=== PATIENT | male | born 1955 | race Caucasian/White ===

== ENCOUNTER → 2023-08-10 11:47 | Outpatient (REF) | payer MEDICARE, OTHER, SELFPAY | LOC: RAD 11:47 | PROVIDERS: ATTENDING PHYSICIAN Physician Assistant Medical | DX: M53.3 Sacrococcygeal disorders, not elsewhere classified (principal) | CPT/HCPCS: 72220 ==

== ENCOUNTER → 2023-08-31 06:31 | Outpatient (REF) | payer MEDICARE, OTHER, SELFPAY | LOC: MRI 3T 06:31 | PROVIDERS: ATTENDING PHYSICIAN Specialist; FAMILY PHYSICIAN Family Medicine | DX: M25.561 Pain in right knee (principal); M25.562 Pain in left knee | CPT/HCPCS: 73721 ==

== ENCOUNTER 2023-11-12 18:19 | Emergency (ER) | payer MEDICARE, OTHER, SELFPAY ==
[2023-11-12 18:28] VITALS: BP 143/81
--- NOTE | 2023-11-12 22:28 | ED.GENMED ---
History of Present Illness
General
Chief Complaint: DVT/Possible Blood Clot
Source: patient
Exam Limitations: none
Time Seen by Provider: 11/12/23 18:42
Nursing documentation reviewed up to this point in time: agreed with
History of Present Illness
History of Present Illness:
Patient to ED with complaint of right lower leg swelling. Noticed symptoms this AM. No history of trauma. No prior history of same. Brought self to ED for eval.
Past History
Past History
ED Past Medical History: None
Social History
Tobacco: Non-smoker
Personal:
Review of Systems
Review of Systems
Allergies reviewed?: Yes
Constitutional: Reports no symptoms
EENT: Reports no symptoms
Respiratory: Reports no symptoms
Cardiac: Reports no symptoms
ABD/GI: Reports no symptoms
Musculoskeletal: Reports joint pain (Right calf pain)
Skin: Reports no symptoms
Neurological: Reports no symptoms
Psychiatric: Reports no symptoms
Phy Exam
General Physical Exam
General Presentation: well appearing and no apparent distress
General age: appears stated age
General Skin: warm and dry
General Habitus: normal
General Mental: alert
Musculoskeletal Exam
Musculoskeletal Exam: full ROM, neuro vasc intact and other (mild swelling to right lower leg.)
Skin Exam
Skin Exam: normal color, warm/dry and no rash
Psychiatric Exam
Psychiatric Exam: normal mood/affect
Course
Orders/Labs/Results
Orders:
Orders
11/12/23 18:32
US Legs, Right [US Periph Venous LOWER Ext RT] Urgent
Comment:
Reason For Exam: pain and swelling.
Vital Signs
Initial and Last Documented VS:
Initial Vital Signs
Temp Pulse Resp BP Pulse Ox
98.6 F 65 18 143/81 99
11/12/23 18:28 11/12/23 18:28 11/12/23 18:28 11/12/23 18:28 11/12/23 18:28
Last Documented Vital Signs
Temp Pulse Resp BP Pulse Ox
98.6 F 65 18 143/81 99
11/12/23 18:28 11/12/23 18:28 11/12/23 18:28 11/12/23 18:28 11/12/23 18:28
*Radiology
Radiology exam reviewed: radiology read reviewed
*Pulse Oximetry
Patient hypoxic: no
*Critical Care Note
Total Time (30-74mins, 75-104mins- exclusive of procedures): Not Applicable
ED Attending Note
-
Portions of this chart may have been created with voice recognition software.� Occasional wrong word or��sound alike� substitutions may have occurred due to the inherent limitations of voice recognition software.
Discharge Plan
Departure
Patient Disposition: Home (Routine Discharge)
Date of Disposition: 11/12/23
Time of Disposition: 20:05
Patient with high blood pressure during this ER visit?: No
Condition: Good
Covid-19: Not Applicable
Discharge Problem:
Leg swelling
Instructions: Swelling, Ayala's Cyst (DC)
Prescriptions:
No Action
oxycodone-acetaminophen [Percocet] 1 EACH tablet
1 - 2 ea PO Q6HPRN PRN (Reason: pain) Qty: 20 0RF
Referrals:
Carline Vicente MD [Family Provider] - Follow up in 2-3 days
Interventions
Interventions:
*Risk Screen - Suicide Last Done: 11/12/23 18:28
*General Assessment Last Done: 11/12/23 18:28
*Neglect/Abuse Screening Last Done: 11/12/23 18:28
*ED COVID-19 Vaccine History Last Done: 11/12/23 18:28
*Nursing Disposition Last Done: 11/12/23 20:17
ED- Cardiac Assessment Last Done: 11/12/23 18:42
ED- Pulmonary Assessment Last Done: 11/12/23 18:42
ED-Peripheral Vascular Assessment Last Done: 11/12/23 18:42
ED-Skin Assessment Last Done: 11/12/23 18:40
Discharge Date and Time
Discharge Date/Time: 11/12/23 20:18
Print Language: DANISH
== END 2023-11-12 20:18 | disposition home or self-care (01) ==
LOC: EMR 18:19
PROVIDERS: EMERGENCY PHYSICIAN Emergency Medicine; FAMILY PHYSICIAN Family Medicine
DX: R22.41 Localized swelling, mass and lump, right lower limb (principal)
CPT/HCPCS: 99284; 93971

== ENCOUNTER → 2024-04-03 14:32 | Outpatient (REF) | payer MEDICARE, OTHER, SELFPAY | LOC: RAD 14:32 | PROVIDERS: ATTENDING PHYSICIAN Family Medicine | DX: R05.3 Chronic cough (principal) | CPT/HCPCS: 71046 ==

== ENCOUNTER → 2024-04-10 07:42 | Outpatient (REF) | payer MEDICARE, OTHER, SELFPAY | LOC: RSP 07:42 | PROVIDERS: ATTENDING PHYSICIAN Family Medicine | DX: R05.3 Chronic cough (principal) | CPT/HCPCS: 94727; 94729; 88738; 94010 ==

== ENCOUNTER 2024-07-22 06:28 | Outpatient (RCR) | payer MEDICARE, OTHER, SELFPAY | END 2024-07-22 23:59 | disposition home or self-care (01) | LOC: ROT 06:28 | PROVIDERS: ATTENDING PHYSICIAN Orthopaedic Surgery; FAMILY PHYSICIAN Family Medicine | DX: M65.341 Trigger finger, right ring finger (principal); Z73.6 Limitation of activities due to disability | CPT/HCPCS: 97140; 97166; 97535 ==

== ENCOUNTER → 2024-07-29 06:58 | Day surgery (SDC) | payer MEDICARE, OTHER, SELFPAY | LOC: CATH 06:58 | PROVIDERS: ATTENDING PHYSICIAN Nuclear Medicine Nuclear Cardiology; FAMILY PHYSICIAN Family Medicine; OTHER PHYSICIAN Student in an Organized Health Care Education/Training Program | DX: I48.0 Paroxysmal atrial fibrillation (principal); Z53.09 Procedure and treatment not carried out because of other contraindication; Z79.02 Long term (current) use of antithrombotics/antiplatelets; R93.1 Abnormal findings on diagnostic imaging of heart and coronary circulation | CPT/HCPCS: 93005 ==

== ENCOUNTER 2024-08-07 12:55 | Outpatient (RCR) | payer MEDICARE, OTHER, SELFPAY | END 2024-08-07 23:59 | disposition home or self-care (01) | LOC: ROT 12:55 | PROVIDERS: ATTENDING PHYSICIAN Orthopaedic Surgery; FAMILY PHYSICIAN Family Medicine | DX: Z47.89 Encounter for other orthopedic aftercare (principal); M65.341 Trigger finger, right ring finger (principal); Z73.6 Limitation of activities due to disability | CPT/HCPCS: 97010; 97018; 97022; 97110; 97140 ==

== ENCOUNTER → 2024-08-12 08:43 | Outpatient (REF) | payer MEDICARE, OTHER, SELFPAY ==
[2024-08-12 09:13] LABS: % Basophils 0.9 % (0-2); % Immature Granulocytes 0.7 % (0-0.5); % Lymphocytes 30.2 % (20.5-51.1); % Monocytes 8.4 % (1.7-9.3); % Neutrophils 56.8 % (42.2-75.2); Absolute Eosinophils 0.1 10^3/uL (0-0.7); Absolute Lymphocytes 1.3 10^3/uL (1.2-3.4); Absolute Monocytes 0.4 10^3/uL (0.1-0.6); Absolute Neutrophils 2.5 10^3/uL (1.4-6.5); Hematocrit 43.6 % (39.0-52.0); Hemoglobin 15.1 g/dL (13.0-18.0); Mean Corp Hgb Conc. 34.6 g/dL (33.0-37.0); Mean Corpuscular Volume 89.5 fL (80.0-94.0); Mean Platelet Volume 9.6 fL (7.4-10.4); Nucleated Red Blood Cells % 0 % (-); Platelet Count 163 10^3/uL (130-400); Red Blood Cell Count 4.87 10^6/uL (4.70-6.10); Red Cell Dist. Width 13.3 % (11.5-14.5); White Blood Cell Count 4.4 10^3/uL (4.8-10.8)
[2024-08-12 10:13] LABS: ALT (SGPT) 26 U/L (0-50); AST (SGOT) 25 U/L (17-59); Albumin 4.4 g/dl (3.5-5.0); Alkaline Phosphatase 68 U/L (38-126); Blood Urea Nitrogen 19 mg/dl (9-20); Carbon Dioxide 28 mmol/L (22-30); Chloride 111 mmol/L (98-107); Glucose 91 mg/dl (70-99); Potassium 4.5 mmol/L (3.5-5.1); Sodium 144 mmol/L (135-145); Total Protein 7.3 g/dl (6.3-8.2); eGFR > 60.00
== END ==
LOC: SDSPAT 08:43
PROVIDERS: ATTENDING PHYSICIAN Internal Medicine Cardiovascular Disease; FAMILY PHYSICIAN Family Medicine; OTHER PHYSICIAN Student in an Organized Health Care Education/Training Program
DX: I48.0 Paroxysmal atrial fibrillation (principal)
CPT/HCPCS: 36415; 80053; 85025; 86850; 86900; 86901

== ENCOUNTER 2024-08-22 12:07 | Day surgery (SDC) | payer MEDICARE, OTHER, SELFPAY ==
[2024-08-12 08:57] VITALS: BMI 24.8
[2024-08-22] VITALS (12 sets, daily range): BP systolic 102–146; BP diastolic 55–92
[2024-08-22 14:52] LABS: ACT-LR - POC 360 Seconds (116-155)
[2024-08-22 15:20] LABS: ACT-LR - POC 382 Seconds (116-155)
[2024-08-22 15:48] LABS: ACT-LR - POC 377 Seconds (116-155)
--- NOTE | 2024-08-22 16:26 | ITS.CL.ABL ---
Special Education Teacher - Ablation
Ablation
Procedure Report:
AFIB ablation:
Mr. Catherine is a very pleasant 68 yr old gentleman with medical history significant for symptomatic paroxysmal atrial fibrillation is here in the EP lab for atrial fibrillation ablation
Date of Procedure:
08/22/2024
Indications:
Symptomatic paroxysmal atrial fibrillation
Pre-Operative Diagnosis:
Paroxysmal atrial fibrillation
Post-Operative Diagnosis:
Paroxysmal atrial fibrillation
Procedure Performed:
Atrial fibrillation ablation with wide area circumferential ablation (WACA) approach for pulmonary vein isolation
Performing Physician:
Marbella Steele MD
Assistants:
EP staff
Anesthesia:
See anesthesia records
Detailed Description of the Procedure:
Written informed consent was obtained from the patient after a full explanation of the risks and benefits of the procedure including the risks of sedation and anesthesia.
The patient was brought to the electrophysiology laboratory in stable condition in fasting state. Continuous electrocardiographic and hemodynamic monitoring was initiated.
The initial rhythm was sinus rhythm.
The procedure site was meticulously prepared with surgical scrub and allowed to dry with no pooling. Sterile draping was applied to cover the procedure site. The image intensifier was draped with sterile bag and positioned over the patient. After
infusion of local anesthetic, vascular access was obtained under ultrasound guidance and sheaths were placed over guide wire as detailed below.
The images of the ultrasound of the femoral vessels were stored in patient chart.
Sheath and Catheter Placement:
In the right femoral vein, a 10-[place] sheath was placed under ultrasound guidance for use during the ablation procedure. In the right femoral vein, another 9-Fr sheath was placed for use during intracardiac echo procedure.
The sheaths were upgraded as needed during the case. Intracardiac catheters were positioned using direct fluoroscopic guidance.� ICE catheter was placed in RA. The following catheters / sheaths were placed
Sheaths:
��������� 17Fr steerable sheath (Faradrive�, Jianshu) upgraded from Agilis sheath in right femoral vein
��������� 9Fr in right femoral vein
Catheters:
��������� The Affera Sphere 9 catheter -bidirectional D/F� - at locations of HRA, LA and LV.
��������� Farawave� PFA catheter
��������� ICE catheter -AccuNav -� at locations of RA, SVC, and RV.
Heparin was initiated after the access was obtained.
Intracardiac ECHO:
An 8-Equatorial [place] AcuNav intracardiac ECHO (ICE) probe was advanced through the 9-Equ[place] sheath in the left femoral vein into the right atrium under fluoroscopic and ICE ultrasound image guidance and a baseline ECHO study was performed. The left atrial
size was mildly dilated. There was trace tricuspid regurgitation. The aortic valve was grossly normal. There was normal left ventricular size and function. There is a trace pericardial effusion. The MELVIN has baseline normal velocities. The pulmonary
had good flow identified.
During the procedure, ICE was used for monitoring of complications, guidance of trans-septal puncture, monitor the catheter position and tracking ablation lesions. No change in the pericardial space noted throughout the procedure.
Trans-septal Puncture:
Heparin was initiated and infused to maintain appropriate ACT. A J-tipped guidewire was advanced through into the superior vena cava under fluoroscopic and ICE guidance. The Agilis sheath with BRK needle was advanced into the superior vena cava over
the guidewire. The apparatus was withdrawn until it was in contact with the fossa ovalis. The position was adjusted based on fluoroscopy and ultrasound images from ICE. Under fluoroscopic, hemodynamic and ICE ultrasound guidance, left atrium was
cannulated by advancing the needle. Once atrial septum was cannulated, the needle was pulled back and the guide wire was advanced through the needle into the left atrium. The guide wire was advanced into the left superior pulmonary vein. Both the
sheath and the dilator was advanced into the left atrium. The dilator with the needle was withdrawn. Blood was aspirated from the Agilis sheath and arterial blood confirmed. The sheath was flushed. Saline injection noted into the left atrium on ICE.
The waveform of the LA pressure was recorded. The mapping catheter was advanced in the Agilis sheath into the left pulmonary vein.
3D Electroanatomic Mapping:
Glycopyrrolate 0.2 mg was given prior to the placement of ablation.
Using the Sphere 9 Affera catheter advanced through Agilis sheath into the left atrium, an electroanatomic map (EAM) of the left atrium was created using Dryada� mapping system with Prism-1 software. The map was used for localization of catheter
position and tacking of ablation lesions. The EAM of the left atrium showed a total of 4 PVs with a two left and two right sided pulmonary veins with all electrically connected to the body the LA. It showed no significant scar on the posterior wall
of the LA. The LA was dilated in size.
The Affera catheter had thermal sensing error on their system and ablation could not be performed. Decision was made to switch to Farapulse for ablation and use Affera for mapping. �
Following the EAM, preparation were made for ablation.
Ablation:
Ablation # 2: Pulmonary vein Isolation:
Glycopyrrolate 0.2 mg was given again with the first dose administered two hours apart prior to the placement of ablation.
Using Farawave pulsed wave ablation system, pulmonary vein isolation was achieved. First the ablation catheter was placed in the LSPV and ostial ablation lesions were performed in a counter clock burciaga approach all around the PV ostium
circumferentially using the Farapulse catheter in �[place]� formation. Then the catheter was placed on the antral location (in Disc/flower formation) and multiple ablation lesions were placed circumferentially on the antrum of the vein.
In the similar fashion, the LIPV were isolated.
Then the catheter was moved to right sided veins. The ostial and antral ablations were placed as noted above.
Confirmation of the PVI and bidirectional block:
Following achievement of entrance block at the pulmonary veins with no electrical activity present in the veins and good normal signal present in the posterior wall and left atrial appendage.
The LA was mapped with The Dryada� mapping system with Prism-1 software in sinus rhythm confirming the line of block at the ablation lesions lines.
�
EP study:
Sinus Node Function: The sinus node functions are within acceptable normal range.
Atrioventricular Alise Function: �Normal AV conduction noted with normal AV alise conduction time.
Procedure End
ICE study was done again that showed no epicardial accumulation. No complications noted.
Following the completion of the EP study, catheters were removed. Protamine 30 mg was given at the end of the procedure and ACT was checked repeatedly. The sheaths were removed and hemostasis achieved with Figure of 8 suture and manual compression
after acceptable ACT is achieved.
Left atrial Pressure:
Pre-Procedure: Mean LA pressure was 5mmHg
Post-Procedure: Mean LA pressure was 6mmHg
Estimated Blood loss:
<10 cc
Specimens Removed:
None.
Implants / Devices:
None
Urine output:
None
Packs / Drains/ Tubes:
None
Instrument / Sponge Count Correct:
Yes
Complications of the Procedure:
None
Condition of Patient at Time of Transfer:
Hemodynamically stable with no neurological or vascular compromise.
Summary:
��������� Successful atrial fibrillation ablation with circumferential bidirectional line of block at pulmonary vein antra (Pulmonary vein isolation)
Figures from the Procedure:
Figure 1: The electroanatomic mapping (EAM) of the left atrium with bipolar voltage (purple indicates normal electrical activity with red as no myocardial muscle electric activity indicating a line of block or scar.
--- NOTE | 2024-08-22 17:19 | PTCARENOTE ---
Pt with bladder discomfort and wished for intervention to relieve pressure. Straight cathed for 800 mls clear yellow and feeling great.
--- NOTE | 2024-08-22 19:02 | PTCARENOTE ---
pt is sr on the monitor, hr in the 60s, vss. pt offers no complaints at this time. right groin is CDI. pt educated on plan of care and verbalized understanding. call costello within reach.
--- NOTE | 2024-08-22 20:55 | PTCARENOTE ---
Pt rec'd at change of shift with spouse at bedside. Right femoral ablation site with DDI. Bedrest completed. Pt aware to call nursing when he wants to get up for the first time. Pt does not feel the urge to void at this time. He was straight cath at
1730 in EP lab. call costello within reach.
[2024-08-22] MEDS: PRADAXA 150 MG PO (22:12)
--- NOTE | 2024-08-22 22:38 | PTCARENOTE ---
Pt attempted to void in bathroom first time since getting straight cath in EP lab at 1730. pt states its was only a couple of drops. bladder scan performed post void with 459 cc noted. Pt with no discomfort at this time. Will rescan at 2330 (6 hrs
post last cath). Pt aware to call nursing if he gets uncomfortable.
--- NOTE | 2024-08-23 00:03 | PTCARENOTE ---
After 6 hrs of multiple trips to bathroom and only approx 20 ml out pt bladder scanned again resulting at 510 cc. Pt then straight cath for 600 ml of vinita urine.
[2024-08-23 05:35] VITALS: BP 121/73
[2024-08-23 05:51] LABS: Hemoglobin 13.8 g/dL (13.0-18.0); Mean Corp Hgb Conc. 35.4 g/dL (33.0-37.0); Mean Corpuscular Hgb 30.9 pg (27.0-31.0); Mean Corpuscular Volume 87.4 fL (80.0-94.0); Mean Platelet Volume 9.8 fL (7.4-10.4); Platelet Count 147 10^3/uL (130-400); Red Blood Cell Count 4.46 10^6/uL (4.70-6.10); Red Cell Dist. Width 13.4 % (11.5-14.5); White Blood Cell Count 7.2 10^3/uL (4.8-10.8)
--- NOTE | 2024-08-23 06:21 | PTCARENOTE ---
Pt reports being unable to void after several attempts throughout the night. bladder scan 668, straight cath for 700. Pt tolerated well.
[2024-08-23 06:27] LABS: Blood Urea Nitrogen 16 mg/dl (9-20); Calcium 9.5 mg/dl (8.4-10.2); Carbon Dioxide 22 mmol/L (22-30); Chloride 112 mmol/L (98-107); Estimated Creatinine Clearance 108 ml/min; Glucose 127 mg/dl (70-99); Potassium 4.4 mmol/L (3.5-5.1); Sodium 140 mmol/L (135-145); eGFR > 60.00
[2024-08-23 07:22] VITALS: BP 129/83
[2024-08-23] MEDS: PRADAXA 150 MG PO (08:23)
[2024-08-23] MEDS: CRESTOR 20 MG PO (08:24)
[2024-08-23] MEDS: PROTONIX 40 MG PO (08:24)
[2024-08-23] MEDS: TOPROL XL 25 MG PO (08:24)
[2024-08-23] MEDS: PROSCAR 5 MG PO (08:25)
[2024-08-23] MEDS: FLOMAX PO (08:49)
[2024-08-23] MEDS: FLOMAX 0.4 MG PO (09:00)
--- NOTE | 2024-08-23 09:00 | W.PN.UPDATE ---
Addendum entered and electronically signed by Rafael Maguire MD 08/23/24 10:51:
68 yo male with paroxysmal A fib on pradaxa, admitted following ablation 08/22. He has some urination retention, and has known h/o this. Seems to be improving. Exam with RRR, no murmurs, no edema. Tele shows SR/SB.
A fib. Continue pradaxa.
urinary retention. seems to be improving. he can self cath at home.
discharge planning
Original Note:
Update Note
Progress Note Update
Mr. Catherine is 68 yo male with paroxysmal Afib, BPH and HLD, who is s/p Afib ablation 08/22/24. He denies any palpitations, continued on Pradaxa. Groin sites are healed. He has BPH and occasional urinary retention, sometimes he will straight cath
himself at home (followed by Dr. Lyons). He was straight cathed last night for about 600ml and continues to feel his bladder is full but unable to urinate. Will give Flomax this am and monitor. If urinary retention improves then he will be
discharged home. Follow up as arranged.
--- NOTE | 2024-08-23 11:34 | W.DS.TRANS ---
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
-
Discharge Instructions:
Discharge Diagnosis/Procedures AFib, s/p ablation
Diet Low Cholesterol
Driving Restrictions No driving for 24 hours
Instructions:
Stand-Alone Forms: DC Instructions- Cath/EP Lab
Changes to Home Medications: No
Discharge Medications:
DC Medications w/original date entered in [employer]
alfuzosin 10 mg tablet,extended release 24 hr 10 mg PO DAILY 08/22/24
dabigatran etexilate 150 mg capsule (Pradaxa) 150 mg PO BID 08/22/24
finasteride 5 mg tablet 5 mg PO DAILY 08/22/24
ipratropium bromide 0.02 % solution for inhalation 2.5 ml inhalation BID PRN drainage 08/22/24
metoprolol succinate 25 mg tablet,extended release 24 hr 25 mg PO DAILY 08/22/24
omeprazole 20 mg capsule,delayed release 20 mg PO DAILY 08/22/24
rosuvastatin 20 mg tablet 20 mg PO DAILY 08/22/24
tadalafil 5 mg tablet 5 mg PO DAILY 08/22/24
Home Medication Changes
Pending Results: No
[2024-08-23 11:59] VITALS: BP 122/71
[2024-08-23 12:01] VITALS: BP 122/71
--- NOTE | 2024-08-23 15:55 | PTCARENOTE ---
Pt seen by . Pt still not fully emptying his bladder, voided urine amounts @100mls with post void bladder scan of @220mls. Pt states his urine is flowing slightly easier. Pt has straight catheters already at home, procedure reviewed with him
as well as written instructions which he understands. Telemetry and IV device removed. Discharge instructions reviewed with pt and his spouse regarding activity and driving restrictions, wound care, medications adn their possible side effects,
reporting cares and concerns be they cardiac or urinary and follow up appt's. Pt escorted out via wheelchair and discharged to home.
[2024-08-25 08:11] LABS: ACT-LR - POC > 397 Seconds (116-155)
[2024-08-25 18:01] LABS: Hepatitis C Antibody Negative (Negative)
== END 2024-08-23 14:25 | disposition home or self-care (01) ==
LOC: CATH 12:07
PROVIDERS: Nurse Practitioner; ATTENDING PHYSICIAN Internal Medicine Cardiovascular Disease; FAMILY PHYSICIAN Family Medicine; OTHER PHYSICIAN Student in an Organized Health Care Education/Training Program
DX: I48.0 Paroxysmal atrial fibrillation (principal); E78.5 Hyperlipidemia, unspecified; G47.33 Obstructive sleep apnea (adult) (pediatric); N28.1 Cyst of kidney, acquired; R33.8 Other retention of urine; N40.1 Benign prostatic hyperplasia with lower urinary tract symptoms; Z79.01 Long term (current) use of anticoagulants
CPT/HCPCS: C1769; C1894; C1892; C1759; 80048; 85027; 85347; 86803; 93005; 93656; 93657; C1733; C1766

== ENCOUNTER → 2025-02-03 18:28 | Outpatient (REF) | payer MEDICARE, OTHER, SELFPAY | LOC: MRI 3T 18:28 | PROVIDERS: ATTENDING PHYSICIAN Psychiatry & Neurology Neurology; FAMILY PHYSICIAN Family Medicine | DX: D32.9 Benign neoplasm of meninges, unspecified (principal); H49.12 Fourth [trochlear] nerve palsy, left eye | CPT/HCPCS: 70544; 70553; A9575 ==

== ENCOUNTER 2025-02-10 11:21 | Emergency (ER) | payer MEDICARE, OTHER, SELFPAY ==
[2025-02-10 11:33] VITALS: BP 105/65
--- NOTE | 2025-02-10 13:47 | ED.GENMED ---
History of Present Illness
General
Chief Complaint: Musculo-Skeletal Complaint
Source: patient
Time Seen by Provider: 02/10/25 13:32
History of Present Illness
History of Present Illness:
69-year-old male with past medical history of CAD, hyperlipidemia, obstructive sleep apnea presenting to the emergency department for evaluation after he was walking down the stairs, tripped and fell injuring his recently surgically repaired right
elbow and also questionably hit his head, patient stating he is concerned because he is on Pradaxa. His main concern is the right elbow pain and swelling, he notes that since the surgery he has had some swelling over the olecranon but states that
it seems to be more swelling along the distal humeral region. He does note he is able to flex and extend the elbow but it does have increased swelling in this area and pain when doing so. Patient denies any headaches, visual changes, focal
weakness or numbness or any other concerns. Patient does have a follow-up visit scheduled with orthopedics this Sunday already as part of his postoperative management with Dr. Oconnor.
Past History
Past History
ED Past Medical History: CAD, Hypercholesterolemia and Other ([facility])
ED Past Surgical History: Orthopedic and Other
Social History
Tobacco: Non-smoker
Alcohol: None
Drug: None
Personal:
Living: with family
Review of Systems
Review of Systems
All Other Systems: ROS reviewed and negative except as documented in HPI and ROS
Phy Exam
Physical Exam
Physical Exam:
GENERAL: Alert , in no apparent distress
EYE: conjunctiva clear
Head: Normocephalic atraumatic
NECK: Supple,
ENT: mmm.
LUNGS: no acute respiratory distress
NEUROLOGICAL: Alert and oriented
SKIN: Warm and dry, skin intact.
MUSCULOSKELETAL: Right upper extremity: Soft tissue swelling overlying the olecranon and extending into the posterior surface of the distal humerus. Patient still allows for full range of motion, slight difficulty/discomfort with full extension.
Able to pronate and supinate. Extremities otherwise warm and well-perfused. Surgical scar is well-healing, no surrounding erythema.
PSYCH: Normal and appropriate interaction.
Scores
Heart Failure Risk
Heart Failure Risk Score: Not Applicable
Heart Score for Chest Pain Patients
STEMI patient?: Not applicable
Withdrawal Assessment of Alcohol
Withdrawal Assessment Completed?: Not applicable
Course
Orders/Labs/Results
Orders:
Orders
02/10/25 11:36
CT Head W/o Iv Contrast Urgent
Comment:
Reason For Exam: fall on thinners
CR Elbow - Right Min 3 Views Urgent
Comment:
Reason For Exam: fall, elbow pain and recent surgery
Vital Signs
Initial and Last Documented VS:
Initial Vital Signs
Temp Pulse Resp BP Pulse Ox
97.7 F 57 17 105/65 99
02/10/25 11:33 02/10/25 11:33 02/10/25 11:33 02/10/25 11:33 02/10/25 11:33
Last Documented Vital Signs
Temp Pulse Resp BP Pulse Ox
97.7 F 57 17 105/65 99
02/10/25 11:33 02/10/25 11:33 02/10/25 11:33 02/10/25 11:33 02/10/25 13:48
MDM/Problems Addressed
Differential Diagnosis Includes:
Contusion
Fracture
Bursitis
ICH
Concussion
MDM/Problems Addressed:
69-year-old male presenting to the ER for evaluation following an accidental fall. Fall caused increased right elbow pain and swelling following a recent surgical procedure. Given patient is on Pradaxa will obtain CT scan of the head although
suspicion for intracranial bleeding is less likely.
*Radiology
Radiology exam reviewed: preliminary read by ED provider (No acute fracture of the right elbow, soft tissue swelling noted) and radiology read reviewed
*Pulse Oximetry
SaO2: 99
Oxygen Mode of Delivery: Room air
Patient hypoxic: no
*Critical Care Note
Total Time (30-74mins, 75-104mins- exclusive of procedures): Not Applicable
Patient Management
Escalation/DeEscalation of care consider admission/obs:
Patient's imaging unremarkable for any intracranial bleeding. X-ray does show soft tissue swelling, question traumatic bursitis. Patient has an appointment with orthopedics this coming . He has a sling at home. Advised continued ice and
elevation, Tylenol as needed for pain. Aware of return precautions to the ER.
ED Attending Note
-
Portions of this chart may have been created with voice recognition software.� Occasional wrong word or��sound alike� substitutions may have occurred due to the inherent limitations of voice recognition software.
Discharge Plan
Departure
Patient Disposition: Home (Routine Discharge)
Date of Disposition: 02/10/25
Time of Disposition: 13:47
Patient with high blood pressure during this ER visit?: No
Discharge Problem:
Accidental fall, Elbow pain, right
Instructions: Bursitis - ED (DC)
Prescriptions:
No Action
omeprazole 20 mg Capsule,Delayed Release(Dr/Ec)
20 mg PO DAILY
metoprolol succinate 25 mg Tablet Extended Release 24 Hr
25 mg PO DAILY
finasteride 5 mg Tablet
5 mg PO DAILY
ipratropium bromide 0.02 % Solution
2.5 ml INHALATION BID PRN (Reason: drainage)
Rx Instructions:
2 sparys to ea nostril
rosuvastatin 20 mg Tablet
20 mg PO DAILY
alfuzosin 10 mg Tablet Extended Release 24 Hr
10 mg PO DAILY
tadalafil 5 mg Tablet
5 mg PO DAILY
dabigatran etexilate [Pradaxa] 150 mg Capsule
150 mg PO BID
Interventions
Interventions:
*General Assessment Last Done: 02/10/25 11:34
*Neglect/Abuse Screening Last Done: 02/10/25 11:34
*ED COVID-19 Vaccine History Last Done: 02/10/25 11:34
*ED Influenza Vaccine History Last Done: 02/10/25 11:34
*Risk Screen - Suicide (C-SSRS) Last Done: 02/10/25 11:34
Discharge Date and Time
Print Language: PERSIAN
== END 2025-02-10 14:06 | disposition home or self-care (01) ==
LOC: EMR 11:21
PROVIDERS: EMERGENCY PHYSICIAN Emergency Medicine; FAMILY PHYSICIAN Family Medicine
DX: M25.521 Pain in right elbow (principal); W10.8XXA Fall (on) (from) other stairs and steps, initial encounter; E78.00 Pure hypercholesterolemia, unspecified; G47.33 Obstructive sleep apnea (adult) (pediatric); I25.10 Atherosclerotic heart disease of native coronary artery without angina pectoris; Z79.01 Long term (current) use of anticoagulants
CPT/HCPCS: 99284; 70450; 73080

== ENCOUNTER → 2025-02-24 06:43 | Outpatient (REF) | payer MEDICARE, OTHER, SELFPAY ==
[2025-02-24 08:54] LABS: Hematocrit 42.5 % (39.0-52.0); Hemoglobin 14.3 g/dL (13.0-18.0); Mean Corp Hgb Conc. 33.6 g/dL (33.0-37.0); Mean Corpuscular Volume 90.0 fL (80.0-94.0); Nucleated Red Blood Cells % 0 % (-); Platelet Count 172 10^3/uL (130-400); Red Cell Dist. Width 13.4 % (11.5-14.5)
[2025-02-24 09:27] LABS: Blood Urea Nitrogen 20 mg/dl (9-20); Calcium 9.9 mg/dl (8.4-10.2); Carbon Dioxide 26 mmol/L (22-30); Chloride 108 mmol/L (98-107); Glucose 79 mg/dl (70-99); Potassium 4.3 mmol/L (3.5-5.1); Sodium 140 mmol/L (135-145); eGFR > 60.00
== END ==
LOC: SDSPAT 06:43
PROVIDERS: ATTENDING PHYSICIAN Orthopaedic Surgery; FAMILY PHYSICIAN Family Medicine; OTHER PHYSICIAN Student in an Organized Health Care Education/Training Program
DX: Z01.818 Encounter for other preprocedural examination (principal)
CPT/HCPCS: 80048; 85025